=== PATIENT | male | born 1940 | race Hispanic/Latino ===

== ENCOUNTER 2018-05-24 08:47 | Outpatient (CLI) | payer MEDICARE ==
--- NOTE | 2018-05-25 23:11 | Cat Scan Report ---
PROCEDURE: CT ANGIO ABD/FEMORAL ABD AORTA TECHNIQUE: Computerized axial tomographic angiography of the aortoiliac system with bilateral lower extremity runoff was performed after the IV injection of nonionic iodinated contrast including image processing.The image data was postprocessed using 2-dimensional multiplanar reformatted (MPR) and 3-d imensional (MIP and/or volume rendered) techniques. CT DOSE LENGTH PRODUCT: 1785.6 mGycm HISTORY: MIXED HYPERLIPIDEMIA COMPARISONS: None . FINDINGS: Abdominal aorta : Normal in caliber . Celiac artery: No significant stenosis . Superior mesenteric artery: Moderate degree stenoses noted at the origins secondary to calcified pedrito que . LEFT renal artery: No significant stenosis . RIGHT renal artery: No significant stenosis . Inferior mesenteric artery: Moderate degree stenosis noted secondary to a calcified plaque . Common iliac arteries: No significant stenosis . External iliac arteries: No significant stenosis . RIGHT lower extremity: Femoral arteries: Common femoral and profunda femoris are patent. SFA is occluded in the middle third . Severe degree diffuse atherosclerotic disease of the proximal third SFA is noted. A labqnio-lf-pymw al/peroneal trunk graft is identified which demonstrates a moderate degree stenosis immediately proxi mal to the distal anastomosis. Popliteal artery: Occluded . Trifurcation vessels: Anterior tibial is occluded at the origin with reconstitution in the proximal to middle third. The dorsalis pedis appears occluded. Tibioperoneal trunk is occluded proximally and the distal segment is anastomosed to the femoral graft. There is no significant stenosis of the peron eal artery beyond the origin. Posterior tibial artery demonstrates multiple moderate to severe degree sclerotic lesions secondary to calcified plaque formation. At the distal third patency cannot be con firmed due to the presence of calcification. . LEFT lower extremity: Femoral arteries: Moderate to severe degree stenosis is noted involving common femoral artery seconda ry to densely calcified plaque formation. Near complete or complete occlusion cannot be excluded. Tig ht stenosis is noted at the origin of profunda femoris. SFA demonstrates moderate to severe degree st enotic lesions in the proximal and distal thirds. . Popliteal arteries: Severe degree stenoses noted secondary to calcified plaque formation in the prox imal and distal thirds.. . Trifurcation vessels: Anterior tibial demonstrates multiple moderate to severe degree stenotic lesio ns throughout the extent. Dorsalis pedis appears occluded. Common tibial peroneal trunk demonstrates severe degree atherosclerotic calcification extending into the origins of the posterior tibial and pe roneal arteries. Posterior tibial demonstrates multiple moderate degree stenotic lesions distal third . Peroneal artery demonstrates moderate degree stenotic lesions in the proximal third but appears pat ent and the middle and distal thirds. . Abdominal and pelvic viscera: Left adrenal demonstrates a hypoenhancing nodule measuring 1.4 cm. The re is mild degree of free fluid in the pelvic cavity. Multiple colonic diverticula are noted. . Other: None . IMPRESSION: SMA stenosis LORNA stenosis Right SFA and popliteal occluded. Right femoral to below knee graft demonstrates a moderate degree st enosis near the distal anastomosis.. Severe degree disease left common femoral, SFA and popliteal arteries Bilateral tibial and peroneal arterial disease as described above. Mild degree of ascites Left adrenal nodule which can be further evaluated using MRI This document is electronically signed by Robert Delgado MD., May 25 2018 11:09:19 PM ET
== END 2018-05-24 08:48 | disposition home or self-care (01) ==
LOC: CT 08:47
PROVIDERS: ATTEND Surgery Vascular Surgery
DX: E78.2 Mixed hyperlipidemia (principal); K57.30 Diverticulosis of large intestine without perforation or abscess without bleeding; R18.8 Other ascites; E27.9 Disorder of adrenal gland, unspecified; E08.59 Diabetes mellitus due to underlying condition with other circulatory complications; I70.213 Atherosclerosis of native arteries of extremities with intermittent claudication, bilateral legs; I70.249 Atherosclerosis of native arteries of left leg with ulceration of unspecified site; I70.421 Atherosclerosis of autologous vein bypass graft(s) of the extremities with rest pain, right leg; I10 Essential (primary) hypertension; J44.9 Chronic obstructive pulmonary disease, unspecified; Z90.49 Acquired absence of other specified parts of digestive tract
CPT/HCPCS: 75635; Q9967

== ENCOUNTER 2018-05-26 12:52 | Day surgery (SDC) | payer MEDICARE ==
[~2018-05-26 12:52] MED LIST: ANCEF/STERILE WATER 2 GM/20 ML 2 GM/20 ML SYRINGE IV NR
[2018-05-26] MEDS: NACL 0.9% 1000 ML 1,000 ML IV SCH ×2 (13:50→16:05)
[2018-05-26 13:56] LABS: Basophils % (Auto) 0.5 % (0.0-1.8); Eosinophils # (Auto) 0.2 K/mm3 (0.0-0.4); Eosinophils % (Auto) 3.3 % (0.0-4.3); Hematocrit 44.5 % (35.5-45.6); Hemoglobin 15.3 gm/dl (11.8-15.2); Lymphocytes # (Auto) 1.3 K/mm3 (1.2-5.4); Lymphocytes % (Auto) 22.9 % (13.4-35.0); Mean Corpuscular HGB Conc 34 % (32-34); Mean Corpuscular Volume 93 fl (84-94); Monocytes # (Auto) 0.4 K/mm3 (0.0-0.8); Monocytes % (Auto) 7.9 % (0.0-7.3); Platelet Count 174 K/mm3 (140-440); Red Blood Count 4.81 M/mm3 (3.65-5.03); Red Cell Distribution Width 13.1 % (13.2-15.2)
[2018-05-26 13:58] LABS: INR 0.95 (0.87-1.13); Partial Thromboplastin Time 29.9 Sec. (24.2-36.6)
[2018-05-26 14:50] LABS: BUN/Creatinine Ratio 16; Blood Urea Nitrogen 18 mg/dL (9-20); Calcium 9.1 mg/dL (8.4-10.2); Hemolysis Index 5
[2018-05-26] MEDS ORDERED: HEPARIN/NS 5000 UNIT/500ML(CATH LAB) 1,000 ML IR ONE (15:44)
[2018-05-26] MEDS ORDERED: ANCEF/STERILE WATER 2 GM/20 ML 2 GM/20 ML SYRINGE IV ONE (15:45)
[2018-05-26] MEDS ORDERED: XYLOCAINE 2% INFILTRATI ONE (15:45)
[2018-05-26] MEDS ORDERED: NACL 0.9% 500 ML 0 ML ONE (15:46)
[2018-05-26] MEDS: SUBLIMAZE ONE ×6 (16:07→17:55)
[2018-05-26] MEDS: VERSED ONE ×6 (16:07→17:55)
[2018-05-26] MEDS: HEPARIN 10,000 UNITS/10 ML ONE ×3 (16:19→17:10)
[2018-05-26] MEDS ORDERED: VERSED ONE (18:15)
[2018-05-26] MEDS ORDERED: SUBLIMAZE ONE (18:15)
--- NOTE | 2018-05-26 18:51 | Short Stay Summary ---
Short Stay Documentation Date of service: 05/26/18 Narrative H&P: [employer] for outpatient attempt at percutaneous reconstruction of left leg artery for PVD with ulceration. Full H&P obtained from office in paper chart - Allergies and Medications Current Medications: Allergies No Known Allergies Allergy (Verified 04/24/14 11:34) Home Medications Medication Instructions Recorded Confirmed Last Taken Type Ascorbic Acid [Vitamin C] 1,000 mg PO DAILY 04/24/14 05/26/18 05/25/18 History 1000mg Aspirin [Aspirin TAB] 325 mg PO DAILY 04/24/14 05/26/18 05/25/18 History 325mg Atenolol [Tenormin] 25 mg PO HS 04/24/14 05/26/18 05/25/18 History 25mg Baclofen 10 mg PO HS 04/24/14 05/26/18 05/25/18 History 10mg Calcium Citrate/Vitamin D3 1 tab PO BID 04/24/14 05/26/18 05/25/18 History [Calcium Citrate - Vit D Tablet] 1 Etodolac 500 mg PO BID 04/24/14 05/26/18 05/25/18 History 500mg Glimepiride 4 mg PO BID 04/24/14 05/26/18 05/25/18 History 4mg Metformin HCl [metFORMIN ER] 750 mg PO BID 04/24/14 05/26/18 05/22/18 History 750mg [place]-3S/Dha/Epa/Fish Oil [Fish 1 cap PO DAILY 04/24/14 05/26/18 05/25/[address] 1,000 mg Softgel] 1 Tramadol HCl [traMADol] 50 mg PO BID PRN 04/24/14 05/26/18 05/25/18 History 50mg hydroCHLOROthiazide 25 mg PO DAILY 04/24/14 05/26/18 05/25/18 History [Hydrochlorothiazide] 25mg Folic Acid 0.8 mg PO DAILY 10/13/17 05/26/18 05/25/18 History 0.8mg cefUROXime [Ceftin] 500 mg PO Q12HR #26 tablet 10/16/17 05/26/18 05/25/18 Rx 500mg Active Medications Cefazolin Sodium (Ancef/Sterile Water 2 Gm/20 Ml) 2 gm in 20 mls @ 80 mls/hr IV PREOP NR; Protocol Stop: 05/26/18 23:59 Sodium Chloride (Nacl 0.9% 1000 Ml) 1,000 mls @ 42 mls/hr IV DIRECT ADRI Last Admin: 05/26/18 16:05 Dose: 42 mls/hr Documented by: - Brief post op/procedure progress note Date of procedure: 05/26/18 Pre-op diagnosis: peripheral vascular disease with ulceration left foot Post-op diagnosis: same Procedure: Percutaneous left femoral popliteal atherectomy with drug coated balloon angioplasty, profunda femoral artery; shock wave balloon angioplasty left common femoral artery, ultrasound-guided cannulation right common femoral artery Anesthesia: other (moderate sedation starting time 1607- 1819 sedation time 112 minutes) Findings: 99% stenosis of the profunda femoris artery at its origin, 99% stenosis of the common femoral artery with heavy exophytic calcification, total occlusion of the proximal popliteal artery with reconstitution above the knee, multiple tibial arterial lesions involving all 3 vessels with posterior tibial artery flow into the foot pending of the proximal blood vessels with dramatic improvement of blood flow popliteal artery still occluded and if improvement on adequate May require endarterectomy of that segment. Surgeon: JACLYN PORRAS Estimated blood loss: minimal Pathology: none Condition: stable - Hospital course Hospital course: Unremarkable - Disposition Condition at discharge: Stable Disposition: [id number] TO HOME OR SELFCARE - Discharge Diagnoses (1) Atherosclerosis of extremity with gangrene Status: Acute Qualifiers: Peripheral atherosclerosis location: lower extremity Peripheral atherosclerosis artery type: soboba artery Laterality: left Qualified Code(s): I70.262 - Atherosclerosis of soboba arteries of extremities with gangrene, left leg Short Stay Discharge Plan Activity: advance as tolerated Weight Bearing Status: Weight Bear as Tolerated Diet: diabetic Wound: keep clean and dry Special Instructions: no heavy lifting Follow up with: MABEL RODRIGES MD [Primary Care Provider] - 7 Days Prescriptions: Clopidogrel Bisulfate [Plavix] 75 mg PO DAILY #30 tablet
[2018-05-26] MEDS ORDERED: PLAVIX PO ONE (19:22)
[2018-05-26] MEDS ORDERED: PLAVIX ONE (19:27)
[2018-05-26 19:34] VITALS: BP 104/52
--- NOTE | 2018-05-26 22:16 | Operative Report ---
PREOPERATIVE DIAGNOSIS: Peripheral vascular occlusive disease with ulceration, left foot. POSTOPERATIVE DIAGNOSIS: Peripheral vascular occlusive disease with ulceration, left foot. OPERATIVE PROCEDURES: 1. Percutaneous balloon angioplasty with atherectomy and shockwave balloon angioplasty, left fem-pop arteries. 2. Duplex guided cannulation of right common femoral artery. SURGEON: Kiko Mixon MD ANESTHESIA: Moderate sedation. BEGINNING TIME: 1607. ENDING TIME: 1819. TOTAL SEDATION TIME: 132 minutes. ESTIMATED BLOOD LOSS: Minimal. CONDITION: The patient's condition improved. COMPLICATIONS: None. INSTRUMENT COUNTS: Correct. SPECIMENS: None. FINDINGS: 1. Preocclusive heavily calcified stenosis involving the left common femoral artery. 2. Preocclusive stenosis of the left deep femoral artery. 3. Heavily calcified totally occluded proximal popliteal artery. 4. Multilevel occlusive disease involving all three tibial vessels with essentially single vessel runoff to the foot via a discontinuous posterior tibial. Proximal lesion successfully treated with shockwave angioplasty and atherectomy with dramatic improvement in the blood flow to the proximal leg and considerable relief of pain in the foot. Unable to cross the popliteal lesion. If necessary, we will need open surgical approach to that lesion. SURGICAL DETAILS: The patient in the supine position. After adequate levels of moderate sedation was obtained, both groins were prepped and draped using standard sterile technique. Duplex guidance was used to identify the right common femoral artery, which was noted to be patent and through anesthetized skin, a micropuncture needle was advanced using duplex guidance into the common femoral artery. A guidewire was advanced proximally. Because of previously known difficult access, I elected to place an Advantage wire initially. This proved to be prudent as it took a series of dilators all the way up to 7 in order to ultimately achieve access in the right groin due to the previous surgeries and heavy scar tissue. Once the 6-[place] [employer] sheath was advanced, then using a rim catheter and the Advantage wire, access to the contralateral iliac system was obtained. The patient was heparinized. I then advanced the sheath to the external iliac and then contrast was injected revealing somewhat anomalous anatomy that is the medial descending branch of the profunda femoral artery left the external iliac artery at the level of the inguinal ligament. This artery was stenosed at least 99% over a less than 1 cm segment. It had already continued distally lateralizing into the distal thigh and was the dominant runoff vessel. The common femoral artery then continued distally. It was heavily calcified with a very large exophytic calcific plaque that left an irregular small channel through multiple islands of calcium. Lateral descending branch of the profunda femoral artery then formed with a preocclusive orificial lesion. The superficial femoral artery below the common femoral artery opened up. It was patent all the way to the popliteal, which then promptly occluded with a large calcific plaque. This was above the knee near the adductor canal. The popliteal artery reconstituted and remained patent above the knee and extending all the way into the tibioperoneal trunk where all 3 vessels were noted to be patent, but attenuated with multiple chain of lakes stenotic lesions distally. At this point, it was determined that intervention would be possible. Using a combination of guidewires and catheters, I was able to pass a 0.014 wire through the tortuous channel into the superficial femoral artery. This vessel was then predilated using a #3 balloon and I then attained a 6.5 shockwave balloon angioplasty device, advanced it across the highly calcified lesions. There under protocol, we ran 180 cycles of the shockwave using multiple balloon insufflations. This device then resulted in dramatic increase in caliber of the common femoral artery and essentially obliterated all of the calcium. A #7 balloon was used to appose this area and repeat contrast showed the common femoral artery to be widely patent, although the orificial lesion in the lateral profunda branch was still present, flow was still considerably improved. I then made an attempt at crossing the popliteal lesion with a variety of wires, but this proved unsuccessful and we abandoned this approach. I then returned to the groin and cannulated the medial descending branch of the profunda and then proceeded to perform a directional atherectomy using a hopTokOne device. This resulted in considerable increase in the caliber of the vessel. We then posted that with an additional #5 balloon and this resulted in improved diameter. Flow was now dramatically improved down the leg. At this point, I did also treat the proximal profunda lesion with a drug-coated balloon. I elected not to place the stent. At this point, I felt that we had maximized our blood flow to his foot and that we potentially took him out of rest pain and possibly delivered enough blood for wound healing. If this fails to heal his wounds, I believe the next step would be a popliteal artery endarterectomy with patch angioplasty, which would restore blood flow to his forefoot. This would also allow us to proceed with tibial atherectomies if necessary as the patient does not have adequate conduit for bypass. I then terminated the procedure by removing all guidewires and catheters. The sheath was extracted and an Angio-Seal device was used for hemostatic closure. The patient was then returned to the recovery area in stable condition having tolerated the procedure well. Sponge and needle counts were correct. The patient stated that his foot felt considerably better and he was able to move his toes without discomfort. JOB# [id number] HUSSAIN/CHRISS
== END 2018-05-26 12:53 | disposition home or self-care (01) ==
LOC: CATHLABREC 12:52
PROVIDERS: ATTEND Surgery Vascular Surgery
DX: I70.242 Atherosclerosis of native arteries of left leg with ulceration of calf (principal); I70.212 Atherosclerosis of native arteries of extremities with intermittent claudication, left leg; I10 Essential (primary) hypertension; I70.262 Atherosclerosis of native arteries of extremities with gangrene, left leg; I25.10 Atherosclerotic heart disease of native coronary artery without angina pectoris; E11.51 Type 2 diabetes mellitus with diabetic peripheral angiopathy without gangrene; J44.9 Chronic obstructive pulmonary disease, unspecified; G47.30 Sleep apnea, unspecified; M19.90 Unspecified osteoarthritis, unspecified site; M06.9 Rheumatoid arthritis, unspecified; Z79.82 Long term (current) use of aspirin; Z79.899 Other long term (current) drug therapy; Z98.49 Cataract extraction status, unspecified eye; Z95.1 Presence of aortocoronary bypass graft; Z90.49 Acquired absence of other specified parts of digestive tract; Z98.890 Other specified postprocedural states; Z79.01 Long term (current) use of anticoagulants; Z87.891 Personal history of nicotine dependence
CPT/HCPCS: 36415; 37225; 76937; 80048; 85025; 85610; 85730; 99156; 99157; C1714; C1725; C1760; C1769; C1884; C1887; C1894; J0690; J1644; J2250; J3010; J7030; J7040; Q9967

== ENCOUNTER 2021-10-10 06:29 | Day surgery (SDC) | payer MEDICARE ==
--- NOTE | 2021-10-09 15:28 | Short Stay Summary ---
Short Stay Documentation Date of service: 10/09/21 Narrative H&P: Patient is a 81-year-old male with past medical history of chronic renal insufficiency, CAD s/p CABG x3 diabetes hypertension, hyperlipidemia, and peripheral vascular disease has a markedly abnormal inferior wall ischemia on stress test and has been cleared by renal to have IV hydration prior. Conversation had with the patient about diagnostic cardiac cath. - History Past Medical History: diabetes, hypertension, hyperlipidemia, PVD, other (Chronic renal insufficiency,) Past Surgical History: CABG Social history: smoking (Former) - Allergies and Medications Current Medications: Allergies No Known Allergies Allergy (Verified 04/24/14 11:34) Home Medications Medication Instructions Recorded Confirmed Last Taken Type Ascorbic Acid [Vitamin C] 1,000 mg PO DAILY 04/24/14 05/26/18 05/25/18 History 1000 mg Aspirin 325 mg PO DAILY 04/24/14 05/26/18 05/25/18 History 325 mg Baclofen 10 mg PO HS 04/24/14 05/26/18 05/25/18 History 10 mg Calcium Citrate/Vitamin D3 1 tab PO BID 04/24/14 05/26/18 05/25/18 History [Calcium Citrate - Vit D Tablet] 1 Etodolac 500 mg PO BID 04/24/14 05/26/18 05/25/18 History 500 mg Glimepiride 4 mg PO BID 04/24/14 05/26/18 05/25/18 History 4 mg [place]-3S/Dha/Epa/Fish Oil [Fish 1 cap PO DAILY 04/24/14 05/26/18 05/25/[address] 1,000 mg Softgel] 1 Tramadol HCl [traMADol] 50 mg PO BID PRN 04/24/14 05/26/18 05/25/18 History 50 mg atenoloL [Tenormin] 25 mg PO HS 04/24/14 05/26/18 05/25/18 History 25 mg hydroCHLOROthiazide 25 mg PO DAILY 04/24/14 05/26/18 05/25/18 History [Hydrochlorothiazide] 25 mg Folic Acid 0.8 mg PO DAILY 10/13/17 05/26/18 05/25/18 History 0.8mg cefUROXime [Ceftin] 500 mg PO Q12HR #26 tablet 10/16/17 05/26/18 05/25/18 Rx 500 mg Clopidogrel Bisulfate [Plavix] 75 mg PO DAILY #30 tablet 05/26/18 Unknown Rx - Physical exam General appearance: no acute distress Integumentary: no rash HEENT: PERRLA Lungs: Clear to auscultation, Normal air movement Heart: Regular rate, Normal S1, Normal S2 Gastrointestinal: normal Extremities: pulses intact Neurological: Normal speech - Brief post op/procedure progress note Date of procedure: 10/10/21 Pre-op diagnosis: CAD s/p CABG, Abnormal stress test Post-op diagnosis: same Anesthesia: local Estimated blood loss: minimal - Hospital course Hospital course: Presents today for cardiac cath. Patient tolerated procedure well with no complications. Patient's grafts patent. See cath report for full details. Patient to receive IVF x4 hours and then discharged home and follow-up in the office. Plan of care discussed with patient who verbalized understanding and acknowledgment. - Disposition Condition at discharge: Good Disposition: 01 HOME / SELF CARE / HOMELESS - Discharge Diagnoses (1) Coronary artery disease Status: Acute (2) History of coronary artery bypass graft Status: Acute (3) Peripheral vascular disease Status: Acute (4) Renal insufficiency Status: Acute (5) Diabetes Status: Acute (6) HTN (hypertension) Status: Acute Qualifiers: Hypertension type: essential hypertension Short Stay Discharge Plan Activity: advance as tolerated Diet: low fat, low cholesterol, low salt Wound: keep clean and dry, per your surgeon's advice Follow up with: MABEL RODRIGES MD [Primary Care Provider] - 7 Days DEVYN FIGUEROA MD [Staff Physician] - 7 Days Forms: CardCath PCI D/C Instructions
[2021-10-10] MEDS ORDERED: SODIUM CHLORIDE 0.9% 1000 ML 1,000 ML ONE (06:53)
[2021-10-10] MEDS ORDERED: ASPIRIN EC 325 MG TAB PO NR (07:02)
[2021-10-10] MEDS ORDERED: SODIUM CHLORIDE 0.9% 1000 ML 1,000 ML IV SCH (07:15)
[2021-10-10 07:44] LABS: Calcium 9.5 mg/dL (8.4-10.2)
[2021-10-10] MEDS ORDERED: HEPARIN/NS 5000 UNIT/500ML 1,000 ML IR ONE (09:38)
[2021-10-10] MEDS: fentaNYL 100 MCG/2 ML INJ ONE ×2 (09:44→10:00)
[2021-10-10] MEDS: MIDAZOLAM 2 MG/2 ML INJ ONE ×2 (09:44→10:00)
[2021-10-10] MEDS: LIDOCAINE (1%) 10 MG/1 ML VIAL 20 ML MDV ONE ×2 (09:44→10:04)
--- NOTE | 2021-10-10 09:58 | Electrocardiograph Report ---
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
[2021-10-10] MEDS ORDERED: LIDOCAINE (1%) 10 MG/1 ML VIAL 20 ML MDV ONE (10:08)
[2021-10-10] MEDS ORDERED: traMADol 50 MG TAB PO PRN (10:26)
[2021-10-10] MEDS ORDERED: HYDROcodone/ACETAMINOPHEN 5-325 MG TAB PO PRN (10:26)
[2021-10-10] MEDS ORDERED: ATROPINE 0.1% (1 MG/10 ML) CARDIAC SYRINGE ONE (10:39)
--- NOTE | 2021-10-10 11:50 | Cardiac Catherization Report ---
DATE OF SERVICE: 10/10/2021 PROCEDURE: Left heart catheterization with vein graft angiography and internal mammary angiography done on 10/10/2021, done with moderate sedation started at 10:00, finished at 10:25, with 25 minutes of moderate sedation. CLINICAL INFORMATION: This is a 81-year-old male with peripheral vascular disease, extensive revascularization with coronary arterial disease with COBB to LAD, left radial to anterolateral and SVG to left posterior descending artery. Has chronic renal insufficiency, hypertension, diabetes, cholesterol. Has a large inferior ischemia. He is here for left heart catheterization after clearance from Renal and IV hydration. DESCRIPTION OF PROCEDURE: Procedure was done via the left common femoral artery, sterile technique and local anesthesia, under ultrasound guidance and fluoroscopy. A 5-Swiss groin sheath was placed in using a long wire. Next, left system engaged with JL4 catheter. Left main is a medium caliber vessel, heavily calcified, diffuse 20%. Then, LAD is a small caliber vessel, proximal 100%. Ramus is a small caliber vessel that is patent. Circumflex in the AV groove is diffusely diseased and OM1 has an ostial 80% and is a small-caliber vessel and then becomes 100%. RCA engaged, is a nondominant small vessel with proximal 95% with mid with sluggish flow into the distal 100%, small vessel disease. SVG to LPDA engaged with JR4 catheter, is a large caliber graft, free of disease from the ostium, body, and anastomosis site feeding into left posterior descending with good antegrade and retrograde flow of a medium caliber LPDA. Left radial artery bypass was engaged with JR4, is a small caliber graft, but free of disease in the ostium and body, feeds into the anterolateral, appears to be a ramus or distal diagonal 2, but is patent, goes into a small caliber vessel. COBB was engaged with an IM catheter, is a large caliber graft, free of disease from the ostium, body, anastomosis site, feeds into the mid LAD, which is a small caliber vessel that is free of disease. Has good antegrade and retrograde flow into the LAD. All catheters taken over a guidewire. The 5-Swiss groin sheath was discontinued, manual pressure held. No hematoma, no bleeding. SUMMARY: 1. Patent COBB to LAD, patent SVG to the left posterior descending artery, patent left radial to anterolateral ramus or diagonal 2. 2. Left main calcified 20%, LAD proximal 100%. Circumflex distal 100%. Ramus small, patent. 3. OM1 ostial 80%, RCA nondominant, 95% proximal with a small caliber vessel, 100%. 4. Normal left ventricular function. This is a small vessel disease. Treat medically. Continue IV hydration. Discussed this with the patient and the patient's family in detail. TID: [id number] RECEIPT: [id number] NORRIS/CASSANDRA/REID MTDD
[2021-10-10 15:12] VITALS: BP 151/51
== END 2021-10-10 06:30 | disposition home or self-care (01) ==
LOC: CATHLABREC 06:29
PROVIDERS: ATTEND Internal Medicine
DX: I25.810 Atherosclerosis of coronary artery bypass graft(s) without angina pectoris (principal); I10 Essential (primary) hypertension; E11.9 Type 2 diabetes mellitus without complications; I25.10 Atherosclerotic heart disease of native coronary artery without angina pectoris; G62.9 Polyneuropathy, unspecified; J44.9 Chronic obstructive pulmonary disease, unspecified; G47.30 Sleep apnea, unspecified; M06.9 Rheumatoid arthritis, unspecified; Z79.899 Other long term (current) drug therapy; Z79.82 Long term (current) use of aspirin; Z95.1 Presence of aortocoronary bypass graft; Z98.49 Cataract extraction status, unspecified eye; Z85.118 Personal history of other malignant neoplasm of bronchus and lung; Z85.46 Personal history of malignant neoplasm of prostate; Z90.49 Acquired absence of other specified parts of digestive tract; Z98.890 Other specified postprocedural states
CPT/HCPCS: 36415; 80048; 82962; 93005; 93459; 99156; 99157; J1644; J2250; J3010; J7030; J0461; Q9967